=== PATIENT | female | born 1975 ===

== ENCOUNTER 2016-11-19 13:11 | Emergency (ER) | payer OTHER ==
[2016-11-19 13:12] VITALS: BMI 42.0
[2016-11-19 13:25] VITALS: RESP 18; TEMP 98.9
[2016-11-19 14:54] LABS: RBC URINE 1 /hpf (0-3); URINE BILIRUBIN NEGATIVE (NEGATIVE); URINE BLOOD NEGATIVE (NEGATIVE); URINE COLOR Yellow (YELLOW); URINE GLUCOSE (UA) NORMAL (Normal); URINE KETONE NEGATIVE (NEGATIVE); URINE LEUKOCYTE ESTERASE NEG Leu/uL (Negative); URINE PROTEIN 1+ mg/dL (NEGATIVE); URINE UROBILINOGEN NORMAL mg/dL (0.2-1.0); WBC URINE < 1 /hpf (0-5)
--- NOTE | 2016-11-19 15:05 | C.PDOC ---
History Of Present Illness 41 y/o female presents to ED for evaluation of right sided back pain radiating down to right leg for the last 5 days. Pt reports working in [employer], which requires her to walk often. Pt feels that her pain is exacerbated by her job. Notes taking Naproxen and Advil with transient relief. Pt reports having similar pain on the left side 1 year ago. Otherwise, denies any trauma, fall, change in sensation, dysuria, hematuria, incontinence, fever, chills, or any other associated symptoms at this time. Time Seen by Provider: 11/19/16 13:47 Chief Complaint (Nursing): Back Pain History Per: Patient History/Exam Limitations: no limitations Onset/Duration Of Symptoms: Days (5) Current Symptoms Are (Timing): Still Present Quality Of Discomfort: "Pain" Previous Symptoms: Back Pain. denies: Prior Injury Associated Symptoms: None. denies: Incontinence, New Weakness, New Numbness Exacerbating Factor(s): Nothing Recent travel outside of the [place]: No Additional History Per: Patient Past Medical History Reviewed: Historical Data, Nursing Documentation, Vital Signs Vital Signs: Last Vital Signs Temp 98.9 F 11/19/16 13:22 Pulse 86 11/19/16 15:33 Resp 18 11/19/16 15:33 BP 148/95 H 11/19/16 15:33 Pulse Ox 97 11/19/16 15:33 - Medical History PMH: HTN Surgical History: Coronary Stent Family History: States: Unknown Family Hx - Social History Hx Alcohol Use: No Hx Substance Use: No - Immunization History Hx Tetanus Toxoid Vaccination: Yes Hx Influenza Vaccination: No Hx Pneumococcal Vaccination: No Review Of Systems Except As Marked, All Systems Reviewed And Found Negative. Constitutional: Negative for: Fever, Chills Genitourinary: Negative for: Dysuria, Frequency, Incontinence, Hematuria Musculoskeletal: Positive for: Back Pain (right lower), Leg Pain (right) Neurological: Negative for: Weakness, Numbness Physical Exam - Physical Exam Appears: Non-toxic, No Acute Distress Skin: Normal Color, Warm, Dry, No Rash Head: Atraumatic, Normacephalic Eye(s): bilateral: Normal Inspection, EOMI Nose: Normal Oral Mucosa: Moist Neck: Supple Chest: Symmetrical Respiratory: No Accessory Muscle Use Back: No CVA Tenderness, No Vertebral Tenderness, Paraspinal Tenderness (right lower lumbar and right buttock region) Extremity: Normal ROM, No Tenderness, Capillary Refill (<2 sec.), No Deformity, No Swelling Extremity: Bilateral: Atraumatic, Normal Color And Temperature, Normal ROM Neurological/Psych: Oriented x3, Normal Speech, Normal Motor, Normal Sensation Gait: Steady ED Course And Treatment O2 Sat by Pulse Oximetry: 98 (on RA) Pulse Ox Interpretation: Normal - Other Rad LS XR X-Ray: Interpreted by Me, Viewed By Me Interpretation: PROCEDURE: Radiographs of the Lumbar Spine. HISTORY: pain. COMPARISON: No prior. FINDINGS: BONES: Normal alignment. No listhesis. No fracture. DISC SPACES: Unremarkable. OTHER FINDINGS: None. IMPRESSION: Unremarkable radiographs of the lumbar spine. Progress Note: LS spine x-ray, and UA ordered and reviewed. On reassessment, pt is resting comfortably, no acute distress. No bony tenderness, abdominal pain, or fever. Pt is ambulatory in the ER with steady gait. No change in sensation. Pt is being discharged home with instructions to follow up with PMD in 1-2 days for further evaluation. Disposition - Disposition Disposition: HOME/ ROUTINE Disposition Time: 15:04 Condition: STABLE Additional Instructions: Follow up with your primary medical doctor or clinic in 2-5 days for further evaluation. Take medications as prescribed. Return to the emergency department at any time if symptoms persist or worsen. 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 - Scribe Statement The provider has reviewed the documentation as recorded by the Vandanaibe Lakhwinder Samuel All medical record entries made by the Vandanaibjessie were at my direction and personally dictated by me. I have reviewed the chart and agree that the record accurately reflects my personal performance of the history, physical exam, medical decision making, and the department course for this patient. I have also personally directed, reviewed, and agree with the discharge instructions and disposition.
[2016-11-19 15:33] VITALS: BP 148/95; PULSE 86
--- NOTE | 2016-11-19 15:45 | RAD ---
PROCEDURE: Radiographs of the Lumbar Spine. HISTORY: pain COMPARISON: No prior. FINDINGS: BONES: Normal alignment. No listhesis. No fracture. DISC SPACES: Unremarkable. OTHER FINDINGS: None. IMPRESSION: Unremarkable radiographs of the lumbar spine.
[2016-11-19 17:09] VITALS: O2SAT 98
== END 2016-11-19 15:33 | disposition home or self-care (01) ==
LOC: C.ER 13:11
DX: M54.5 Low back pain (principal); I10 Essential (primary) hypertension